=== PATIENT | female | born 2000 | race African-American/Black ===

== ENCOUNTER 2020-07-26 05:16 | Observation (INO) ==
--- NOTE | 2020-07-26 05:28 | ERNOTE ---
Abdominal HPI - General Chief Complaint: Abdominal Pain Time Seen by Provider: 07/26/20 05:16 Source: patient, EMS, past records - Immun/Allergies/Home Medications Immunizatons: IMMUNIZATION HX Immunizations Up to Date Yes History of Influenza Vaccine No Hx Pneumococcal Vaccination No Allergies/Adverse Reactions: Allergies ibuprofen Allergy (Verified 07/26/20 05:23) Swelling of Throat Home Medications: HOME MEDICATIONS NK 07/26/20 [Last Taken Unknown] - History of Present Illness Narrative: Patient brought in by EMS, states was outside in the grass, complaining of abdominal pain. She is writhing in pain, holding her abdomen. Patient initially stated she didn't know if she is , then she denied being . She offered no reason to have abdominal pain. Patient states that the pain started 3 days ago, but offers no other clues. EMS report that initially patient stated she didn't know if she was , then she denied to me, and finally told the nurse she had no idea when her last menstrual cycle was. Nursing staff pointed out that she could be then. Timing: constant, getting worse Quality: moderate, severe Activities at Onset: none Modifying Factors - (Improves): Present: other - nothing Modifying Factors - (Worsens): Present: movement Associated Symptoms: Present: loss of appetite Prior Abdominal Problems: Present: none Review of Systems - Review of Systems Constitutional: Absent: recent illness, fever, chills EYE: Absent: eye pain, eye discharge ENT: Absent: ear pain, ear discharge Respiratory: Absent: shortness of breath, cough Cardiology: Absent: chest pain Gastrointestinal/Abdominal: Present: nausea, abdominal pain. Absent: vomiting, diarrhea Genitourinary: Absent: frequency, pain, dysuria Musculoskeletal: Absent: back pain, muscle pain Medical History (Last Reviewed 07/26/20 @ 05:49 by Lula Lyle) Depression Surgical History: Surgical History (Last Reviewed 07/26/20 @ 05:49 by Lula Lyle) No pertinent past surgical history Family History: Family History (Last Reviewed 07/26/20 @ 05:49 by Lula Lyle) Other Cancer Hypertension Social History: (Last Reviewed 07/26/20 @ 05:49 by Lula Lyle) Social History: adopted: No foster care: No Marital status: Single lives independently: Yes number of children: 0 current occupational status: employed 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 Tobacco: Smoking Status: Current every day smoker Smoking cigarettes per day: 4 Alcohol: alcohol intake: never Substance Use: substance use type: does not use Dietary Habits: caffeine: No Physical Exam - Physical Exam General Appearance: Present: alert, moderate distress, other - rolling around on the bed, holding her abdomen Head Exam: Present: normal inspection, no evidence of injury Eye Exam: Normal inspection: bilateral, EOMI: bilateral Ears, Nose, Throat: Present: normal ENT inspection Neck: Present: normal inspection, nontender, supple, full range of motion Respiratory: Present: no respiratory distress, normal breath sounds, no accessory muscle use, chest nontender, lungs clear Cardiovascular/Chest: Present: regular rate, rhythm, no murmur Gastrointestinal/Abdominal: Present: normal bowel sounds, tenderness, distended - mildly Back Exam: Present: normal inspection, normal range of motion Extremity Exam: Present: normal inspection, non-tender, normal range of motion, no edema Neurological Exam: Present: alert, oriented, other - anxious Skin Exam: Present: normal color, warm/dry Progress - Results and Orders Patient's Lab Results:: I have reviewed the patient's lab results. Results and Orders: Laboratory Results - last 24 hr 07/26/20 07/26/20 07/26/20 05:45 05:45 05:45 WBC 19.3 H RBC 3.76 L Hgb 10.8 L Hct 33.3 L MCV 88.6 MCH 28.7 MCHC 32.4 RDW 13.9 Plt Count 283 MPV 9.7 Neutrophils % (Manual) 83 H Band Neuts % (Manual) 2 Lymphocytes % (Manual) 13 L Monocytes % (Manual) 2 Neutrophils # (Manual) 16.0 H Lymphocytes # (Manual) 2.5 Monocytes # (Manual) 0.4 Platelet Estimate Normal RBC Morphology Normal Sodium 139 Plasma Sodium 140 Potassium 3.2 L Chloride 102 Carbon Dioxide 24.7 Anion Gap 15.5 H BUN 7 Creatinine 0.76 Est GFR (Non-Af Amer) 124 BUN/Creatinine Ratio 9.2 Random Glucose 166 H Calcium 8.8 Calcium Adj for Albumin 8.8 Total Bilirubin 0.2 AST 17 ALT 15 L Alkaline Phosphatase 67 Total Protein 7.1 Albumin 3.6 Amylase 95 Lipase 239 Ethyl Alcohol Less than 3.0 Maternal Serum HCG 56190 H - Vital Signs Patient's Vital Signs:: I have reviewed the patient's vital signs. Vital Signs: Vital Signs 07/26/20 05:18 Temperature 35.9 C L Pulse Rate 77 Respiratory Rate 18 Blood Pressure 158/100 H O2 Sat by Pulse Oximetry 100 - CT/Ultrasound CT/Ultrasound Narrative: [facility] PATIENT RADIOLOGY STUDY REPORT Patient Patient Name:Breonna Gama Date: 2000 Sex: F Order Number: [id number] Unique Exam ID: [id number] Exam Requested: OB LIMIT1 - US OB Limited 1st Trimester Date Scheduled: 07-26-2020 07:01 AM Study Priority: Requesting Service: Requesting Physician: Lula Lyle Reason for Exam: abdominal pain Radiological Report : [facility] [address] [address] NAME: Breonna Gama : 2000 MR #: [id number] CC: Narcisa VALVERDE LOC: ER ADM DATE: DIS DATE: X-RAY REPORT [id number] ULT/US OB Limited 1st Trimester Exam Date: 07/26/2020 07:42 Ordering Physician: Lula Llye History: Beta hCG 15,000 Abdominal pain Technique: Transabdominal/transvaginal first trimester OB ultrasound performed. Results are called directly to the emergency room physician Dr. Lyle at 8:18 AM after discussion with the angio technologist Comparison: None Findings: Live ectopic identified in the right adnexa although cardiac heart rate cannot be obtained color flow indicates a beating heart with a pole and yolk sac in a thick-walled right adnexal mass. Extensive complex fluid in the pelvis suggests hemorrhaging Right ovarian volume not including ectopic approximately 5 cc. Right ovary 2.61 x 2.2 x 2.3 cm Left ovary 3.8 x 2.3 x 1.6 cm for volume of 7.4 cc Gestational sac dimension in the right adnexa ectopic 1.8 cc centimeters [place]-rump length 0.8 cm IMPRESSION: LIVE RIGHT ADNEXAL ECTOPIC EXTENSIVE BLOOD IN THE PELVIS INDICATING HEMORRHAGing RESULTS WERE CALLED DIRECTLY TO THE EMERGENCY ROOM PHYSICIAN DESCRIBED ABOVE Electronically signed by Logan Gamino MD. Logan Gamino MD Dict: 07/26/20821 Typed: 07/26/20821/ 07/26/20 0826 , Approved by: Logan Gamino Approval Date: 07-26-2020 Approval Time: 08:22 AM THIS REPORT WAS RECEIVED FROM THE [facility] - Progress/Reassessment Chief Complaint: Abdominal Pain Progress Note-Subjective: 07/26/20 09:13 Ultrasound shows an ectopic that needs to go to surgery 07/26/20 09:[address] Izquierdo, OB production weigher. She came over to see the patient, noting that she would need to go to the OR for surgery for this ectopic . Dr. Izquierdo accepted the patient for further evaluation and treatment. Departure Clinical Impression: Ectopic Qualifiers: Location of ectopic : other location Intrauterine status: without intrauterine Qualified Code(s): O00.80 - Other ectopic without intrauterine - Departure Disposition: Still a patient Condition: Stable Referrals: Narcisa Bush ARNP [Primary Care Provider] -
[2020-07-26 05:48] LABS: Hematocrit 33.3 % (37.0-47.0); Hemoglobin 10.8 gm/dL (12.5-16.0); Mean Cell Volume 88.6 fl (78-100); Mean Corpuscular Hemoglobin 28.7 pg (27-31); Mean Corpuscular Hgb Conc 32.4 g/dl (32-36); Mean Platelet Volume 9.7 fl (8-12.5); Platelet Count 283 K/mm3 (150-450); Red Blood Count 3.76 M/mm3 (4.2-5.4); Red Cell Distribution Width 13.9 % (11.5-14.0); White Blood Count 19.3 K/mm3 (4.0-10.5)
[2020-07-26 05:50] LABS: Total Cells Counted 100
[2020-07-26] MEDS ORDERED: ACETAMINOPHEN 1,000 MG/100 ML BTL IV ONE (05:53)
[2020-07-26] MEDS ORDERED: ONDANSETRON HCL/PF 2 MG/ML VIAL IV ONE (05:54)
[2020-07-26 06:02] LABS: ALT 15 U/L (19-67); AST 17 U/L (0-48); Albumin * 3.6 gm/dl (3.4-5.0); Alkaline Phosphatase * 67 U/L (50-170); Amylase * 95 U/L (25-115); Anion Gap 15.5 mmol/L (6.8-13.8); BUN/Creatinine Ratio 9.2 (9.0-21.6); Bilirubin, Total 0.2 mg/dL (0.0-1.1); Blood Urea Nitrogen 7 mg/dL (3-23); Ca. Corrected For Albumin 8.8 mg/dL (8.4-10.2); Calcium * 8.8 mg/dL (7.9-10.9); Carbon Dioxide 24.7 mmol/L (24-32.6); Chloride 102 mmol/L (97-106); Glucose * 166 mg/dL (70-110); Lipase 239 U/L (73-393); Potassium 3.2 mmol/L (3.4-4.6); Sodium 139 mmol/L (132-142); Total Protein 7.1 gm/dL (6.2-8.2)
[2020-07-26 06:12] LABS: Band 2 % (0-2.0); Lymphocyte 13 % (20-51); Monocyte 2 % (0-9); Neutrophil 83 % (42-75)
[2020-07-26 06:13] LABS: Platelet Estimate Normal (NORMAL); RBC Morphology Normal (NORMAL)
[2020-07-26] MEDS ORDERED: RINGER'S SOLUTION,LACTATED 1,000 ML IV ONE (09:10)
[2020-07-26] MEDS ORDERED: NEOSTIGMINE METHYLSULFATE 1 MG/ML VIAL ONE (09:16)
[2020-07-26] MEDS ORDERED: ONDANSETRON HCL/PF 2 MG/ML VIAL ONE (09:16)
[2020-07-26] MEDS ORDERED: fentaNYL CITRATE/PF 50 MCG/ML AMPUL ONE ×2 (09:16→10:22)
[2020-07-26] MEDS ORDERED: PROPOFOL VIAL IV ONE (09:16)
[2020-07-26] MEDS ORDERED: GLYCOPYRROLATE 0.2 MG/ML VIAL ONE (09:16)
[2020-07-26] MEDS ORDERED: KETOROLAC TROMETHAMINE 30 MG/ML VIAL ONE (09:16)
[2020-07-26] MEDS ORDERED: SUCCINYLCHOLINE CHLORIDE 20 MG/ML VIAL ONE (09:17)
[2020-07-26] MEDS ORDERED: ROCURONIUM BROMIDE 10 MG/ML VIAL ONE (09:17)
[2020-07-26] MEDS ORDERED: ceFAZolin SODIUM 1 GM VIAL ONE (09:21)
--- NOTE | 2020-07-26 09:21 | HP ---
Chief Complaint - Chief Complaint Date of Service: 07/26/20 Time of Service: 09:15 Chief Complaint: abdominal pain History of Present Illness: 19 year old at approximately 6 weeks gestation. She was found passed out and brought to the emergency department. She reports RLQ pain. 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 Tobacco: Smoking Status: Current every day smoker Smoking cigarettes per day: 4 Alcohol: alcohol intake: never Substance Use: substance use type: does not use Dietary Habits: caffeine: No Review Of Systems (GEN) - Review of Systems Generalized/Overall Review: Present: No Symptoms Reported Abdominal: Present: Other - RLQ pain Misc: All systems neg except as marked Immunizations: IMMUNIZATION HX Immunizations Up to Date Yes History of Influenza Vaccine No Hx Pneumococcal Vaccination No Allergies/Adverse Reactions: Allergies Allergy/AdvReac Type Severity Reaction Status Date / Time ibuprofen Allergy Swelling Verified 07/26/20 05:23 of Throat Home Medications: HOME MEDICATIONS NK 07/26/20 [Last Taken Unknown] Exam - Exam Vital Signs: Vital Signs - Last Taken Temp 35.9 C L 07/26/20 05:18 Pulse 65 07/26/20 09:00 Resp 14 07/26/20 09:00 BP 134/81 07/26/20 09:00 Pulse Ox 100 07/26/20 09:00 Constitutional: Present: Alert, Oriented x3, Cooperative, No distress ENT Exam: Present: hearing grossly normal Eye Exam: bilateral eye: normal inspection Neck: Present: normal inspection Respiratory: Present: lungs clear, normal breath sounds, no respiratory distress Cardiovascular/Chest: Present: regular rate, rhythm Abdomen: Present: Normal bowel sounds, soft, tender, rebound tenderness /Rectal: Present: Exam deferred Extremity: Present: non-tender, no calf tenderness Skin Exam: Present: normal color, warm/dry, no cyanosis Neurologic: Present: alert, normal mood/affect, oriented x 3 Appearance: Present: appropriate appearance, appropriate insight, neat, no memory impairment Eye contact: Present: cooperative, good eye contact, normal speech Thoughts: Present: normal thought pattern Diagnostic Studies: Abnormal Lab Results 07/26/20 07/26/20 07/26/20 Range/Units 05:45 05:45 05:45 WBC 19.3 H (4.0-10.5) K/mm3 RBC 3.76 L (4.2-5.4) M/mm3 Hgb 10.8 L (12.5-16.0) gm/dL Hct 33.3 L (37.0-47.0) % Neutrophils % (Manual) 83 H (42-75) % Lymphocytes % (Manual) 13 L (20-51) % Neutrophils # (Manual) 16.0 H (1.3-6.0) K/mm3 Potassium 3.2 L (3.4-4.6) mmol/L Anion Gap 15.5 H (6.8-13.8) mmol/L Random Glucose 166 H (70-110) mg/dL ALT 15 L (19-67) U/L Maternal Serum HCG 49034 H (0-6) mIU/mL Laboratory Results WBC 19.3 K/mm3 (4.0-10.5) H 07/26/20 05:45 RBC 3.76 M/mm3 (4.2-5.4) L 07/26/20 05:45 Hgb 10.8 gm/dL (12.5-16.0) L 07/26/20 05:45 Hct 33.3 % (37.0-47.0) L 07/26/20 05:45 MCV 88.6 fl (78-100) 07/26/20 05:45 MCH 28.7 pg (27-31) 07/26/20 05:45 MCHC 32.4 g/dl (32-36) 07/26/20 05:45 RDW 13.9 % (11.5-14.0) 07/26/20 05:45 Plt Count 283 K/mm3 (150-450) 07/26/20 05:45 MPV 9.7 fl (8-12.5) 07/26/20 05:45 Neutrophils % (Manual) 83 % (42-75) H 07/26/20 05:45 Band Neuts % (Manual) 2 % (0-2.0) 07/26/20 05:45 Lymphocytes % (Manual) 13 % (20-51) L 07/26/20 05:45 Monocytes % (Manual) 2 % (0-9) 07/26/20 05:45 Neutrophils # (Manual) 16.0 K/mm3 (1.3-6.0) H 07/26/20 05:45 Lymphocytes # (Manual) 2.5 k/mm3 (1.5-3.5) 07/26/20 05:45 Monocytes # (Manual) 0.4 k/mm3 (0.0-1.0) 07/26/20 05:45 Platelet Estimate Normal (NORMAL) 07/26/20 05:45 RBC Morphology Normal (NORMAL) 07/26/20 05:45 Sodium 139 mmol/L (132-142) 07/26/20 05:45 Plasma Sodium 140 mmol/L (130-142) 07/26/20 05:45 Potassium 3.2 mmol/L (3.4-4.6) L 07/26/20 05:45 Chloride 102 mmol/L (97-106) 07/26/20 05:45 Carbon Dioxide 24.7 mmol/L (24-32.6) 07/26/20 05:45 Anion Gap 15.5 mmol/L (6.8-13.8) H 07/26/20 05:45 BUN 7 mg/dL (3-23) 07/26/20 05:45 Creatinine 0.76 mg/dL (0.4-1.4) 07/26/20 05:45 Est GFR (Non-Af Amer) 124 mL/min (60-130) 07/26/20 05:45 BUN/Creatinine Ratio 9.2 (9.0-21.6) 07/26/20 05:45 Random Glucose 166 mg/dL (70-110) H 07/26/20 05:45 Calcium 8.8 mg/dL (7.9-10.9) 07/26/20 05:45 Calcium Adj for Albumin 8.8 mg/dL (8.4-10.2) 07/26/20 05:45 Total Bilirubin 0.2 mg/dL (0.0-1.1) 07/26/20 05:45 AST 17 U/L (0-48) 07/26/20 05:45 ALT 15 U/L (19-67) L 07/26/20 05:45 Alkaline Phosphatase 67 U/L (50-170) 07/26/20 05:45 Total Protein 7.1 gm/dL (6.2-8.2) 07/26/20 05:45 Albumin 3.6 gm/dl (3.4-5.0) 07/26/20 05:45 Amylase 95 U/L (25-115) 07/26/20 05:45 Lipase 239 U/L (73-393) 07/26/20 05:45 Ethyl Alcohol Less than 3.0 mg/dL (0.0-10.0) 07/26/20 05:45 Maternal Serum HCG 83051 mIU/mL (0-6) H 07/26/20 05:45 Assessment/Plan - Narrative Narrative: 19 year old with presumed ruptured right ectopic . Proceed with laparoscopy, right salpingectomy. All risks, benefits, and alternatives of the procedure were explained to the patient and the patient consented to the procedure. Type and screen should the patient need blood and also to determine the need for Rhogam. Patient currently hemodynamically stable. Awaiting for COVID test results to proceed with surgical intervention. - Assessment/Plan (1) Ruptured right tubal ectopic causing hemoperitoneum Problem: Acute (2) Acute blood loss anemia Problem: Acute (3) Leukocytosis Problem: Acute
--- NOTE | 2020-07-26 10:14 | ANES ---
Anesthesia Pre Procedure Eval Vitals/Labs: Last Vital Signs Temp 35.9 C L 07/26/20 05:18 Pulse 65 07/26/20 09:00 Resp 14 07/26/20 09:00 BP 134/81 07/26/20 09:00 Pulse Ox 100 07/26/20 09:00 HOME MEDICATIONS hydrocodone 5 mg-acetaminophen 325 mg tablet 1 tab PO Q6H PRN #12 tab 07/26/20 [Last Taken Unknown] Allergies/Adverse Reactions: Allergies Allergy/AdvReac Type Severity Reaction Status Date / Time ibuprofen Allergy Swelling Verified 07/26/20 05:23 of Throat - Planned Procedure Planned Procedure: abd pain Medication List Reviewed:: Yes Allergies Verified: Yes Medical History (Last Reviewed 07/26/20 @ 10:11 by Robin Cagle CRNA) Depression Surgical History (Last Reviewed 07/26/20 @ 10:11 by Robin Cagle CRNA) No pertinent past surgical history Family History (Last Reviewed 07/26/20 @ 10:11 by Robin Cagle CRNA) Other Cancer Hypertension - Family Anesthesia History Family History:: no untoward family reactions to anesthesia, no familial bleeding tendencies, no family history of clotting disorders, no family history of premature - Airway/Neck/Teeth Within Normal Limits:: Yes Teeth Condition: intact Neck Exam: full range of motion Mallampatti Score: 2 Thyromental (T-M) distance: > 6 cm Mandibulo Hyoid distance: > 3 cm - Respiratory Respiratory Physical: lungs clear Smoking Status: Current some day smoker Discussed smoking cessation including day of surgery: Yes - last one, yesterday Sleep Apnea currently treated: No Sleep Apnea by current assessment: No - Cardiovascular Tolerate Activity: Good Heart Sounds: S1 & S2, Regular - Gastrointestinal NPO since: 2399 - Anesthesia Assessment and Plan ASA Class: PS, II, E Anesthesia Type Plan: General ET
[2020-07-26] MEDS ORDERED: ceFAZolin SODIUM 1 GM in DEXTROSE 5 % IN WATER 100 ML IV ONE ×2 (10:40)
[2020-07-26] MEDS: RINGER'S SOLUTION,LACTATED 1,000 ML IV PRN ×2 (11:00→13:39)
[2020-07-26 11:12] LABS: Urine Bilirubin Negative (NEGATIVE); Urine Blood Negative /ul (NEGATIVE); Urine Ketone 50 mg/dL (NEGATIVE); Urine Nitrite Negative (NEGATIVE); Urine Protein Negative (NEGATIVE); Urine Specific Gravity 1.025 SP.GR. (1.005-1.010); Urine Urobilinogen Normal (NORMAL)
[2020-07-26 11:13] LABS: Urine Appearance Clear (CLEAR); Urine Bacteria TRACE; Urine Color Yellow; Urine Mucus Moderate - 2+; Urine RBC 0-5 /hpf (0-5); Urine WBC 0-5 /hpf (0-5)
[2020-07-26 11:17] LABS: Cocaine Ur Negative (NEGATIVE); Urine Barbiturate Negative (NEGATIVE); Urine Benzodiazepines Negative (NEGATIVE); Urine Opiates Negative (NEGATIVE); Urine PCP Negative (NEGATIVE)
[2020-07-26 11:19] LABS: Urine THC Positive (NEGATIVE)
[2020-07-26] MEDS ORDERED: LIDOCAINE HCL/EPINEPHRINE 50 ML VIAL IJ ONE (11:23)
--- NOTE | 2020-07-26 12:28 | ANES ---
Post Anesthesia Discharge - Transfer of Care Transfer of Care handoff given to nurse: Yes - Discharge from PACU Discharge from PACU when meets criteria: Yes - Alert and comfortable.
[2020-07-26] MEDS ORDERED: MORPHINE SULFATE 2 MG/ML DISP.SYRIN IV PRN (12:35)
--- NOTE | 2020-07-26 12:39 | POSTOP NO ---
Date of Surgery: 07/26/20 Anesthesia: General Patient Tolerated the Procedure: Well Post Operative Diagnosis/Procedures: Pre Operative Diagnosis: ruptured right ectopic Post Operative Diagnosis: same Procedure Performed: Laparoscopy, right salpingectomy, evacuation of hemoperitoneum Estimated Blood Loss: minimal, about 500 mL of hemoperitoneum Specimens: right ectopic Surgical Complications: Condition: stable Disposition: 23 hour obs
--- NOTE | 2020-07-26 13:25 | ANES ---
Post Anesthesia Assessment - Vital Signs Vitals: Last Vital Signs Temp 36.5 C 07/26/20 13:00 Pulse 88 07/26/20 13:15 Resp 12 07/26/20 13:15 BP 144/125 H 07/26/20 13:15 Pulse Ox 100 07/26/20 13:15 Airway Patency: Normal - Mental Status Level Of Consciousness: Awake, Alert, Appropriate - Pain Level Pain Score: 8 - N/V Assessment Nausea/Vomiting Presence: None Dehydration:: No
[2020-07-26] MEDS: HYDROcodone/ACETAMINOPHEN 1 EACH TABLET PO PRN ×3 (14:33→21:10)
[2020-07-26] MEDS ORDERED: ONDANSETRON HCL/PF 2 MG/ML VIAL IV PRN (16:10)
[2020-07-26] MEDS ORDERED: MELATONIN 3,000 MCG TABLET PO PRN (16:56)
[2020-07-26 17:16] LABS: Hematocrit 27.8 % (37.0-47.0); Hemoglobin 9.1 gm/dL (12.5-16.0); Mean Cell Volume 88.5 fl (78-100); Mean Corpuscular Hgb Conc 32.7 g/dl (32-36); Neutrophil # 14.7 K/mm3 (1.3-6.0); Neutrophil % 75.6 % (42-75.0); Platelet Count 235 K/mm3 (150-450); Red Blood Count 3.14 M/mm3 (4.2-5.4); Red Cell Distribution Width 14.2 % (11.5-14.0); White Blood Count 19.3 K/mm3 (4.0-10.5)
--- NOTE | 2020-07-26 17:52 | OR ---
Operative Report - Dictated Report Narrative: Preoperative diagnosis: ruptured right ectopic Postoperative diagnosis: same Procedure: Laparoscopic right salpingectomy, evacuation of hemoperitoneum Surgeon: Dr. Izquierdo Anesthesia: TIMO Anesthesiologist: Robin Cagle CRNA Description of the procedure: The patient was taken to the operating room where general anesthesia was induced. She was then prepped and draped in the lithotomy position in the standard surgical fashion. Attention was then turned to the vagina. A sterile speculum was placed in the patient's vagina. The anterior lip of the cervix was grasped with a single toothed tenaculum. The cervical os was gently dilated with Abhilash dilators to #14 to accommodate the uterine manipulator. The uterus sounded to 8 cm. A ZUMI manipulator was placed. Attention was then turned to the abdomen. A 5 mm skin incision was made at the punctum of the umbilicus. The abdomen was entered directly and then insufflated with CO2 gas. A second 5 mm port was placed in the LLQ. A 12 mm port was placed in the RLQ. A right ruptured ectopic was identified. The sac containing the fetus was extruded from the tube. The right fallopian tube was cut along the mesosalpinx. The right fallopian tube and were removed from the abdomen using an endobag. The omentum was adherent to the pelvic side wall bilaterally. The omentum was from the pelvic side wall to allow for optimal evacuation of the hemoperitoneum. Care was taken to observe the bowel wall at all times. Next, a large amount of clotted blood was removed from the abdomen. The abdomen was copiously irrigated and suctioned. The RLQ port's fascia was closed with 0-vicryl using a Tad-Brigid device. The skin incisions were closed with 4-0 rapide. [place] blancas was placed over the incisions. The incisions were covered with band aids. All sponge, lap, and needle counts were correct. The patient tolerated the procedure well. She was transferred to the recovery room in stable condition. EBL: minimal, 500 mL of hemoperitoneum Complications: none Specimen: right fallopian tube with ectopic
[2020-07-26] MEDS ORDERED: CITALOPRAM HYDROBROMIDE 10 MG TABLET PO SCH (21:00)
[2020-07-27] MEDS: HYDROcodone/ACETAMINOPHEN 1 EACH TABLET PO PRN ×4 (03:45→16:06)
[2020-07-27 07:04] LABS: Hematocrit 24.3 % (37.0-47.0); Mean Cell Volume 87.7 fl (78-100); Mean Corpuscular Hemoglobin 28.9 pg (27-31); Mean Corpuscular Hgb Conc 32.9 g/dl (32-36); Mean Platelet Volume 9.6 fl (8-12.5); Neutrophil # 7.3 K/mm3 (1.3-6.0); Neutrophil % 64.4 % (42-75.0); Platelet Count 193 K/mm3 (150-450); Red Blood Count 2.77 M/mm3 (4.2-5.4); Red Cell Distribution Width 14.1 % (11.5-14.0); White Blood Count 11.3 K/mm3 (4.0-10.5)
--- NOTE | 2020-07-27 10:55 | PN ---
Subjective - Date and Time Seen Date: 07/27/20 Time: 10:45 Subjective Narrative: Patient without complaints other than dizziness Objective Objective Narrative: See vital signs - Review of Systems Misc: All systems neg except as marked - Vitals Vitals: Last Vital Signs Temp 37.1 C 07/27/20 10:29 Pulse 71 07/27/20 10:29 Resp 18 07/27/20 10:29 BP 122/78 07/27/20 10:29 Pulse Ox 100 07/27/20 10:29 - Abnormal Lab Findings Abnormal Lab Findings: Abnormal Lab Results 07/26/20 07/26/20 07/26/20 Range/Units 10:50 10:50 17:11 WBC 19.3 H (4.0-10.5) K/mm3 RBC 3.14 L (4.2-5.4) M/mm3 Hgb 9.1 L (12.5-16.0) gm/dL Hct 27.8 L (37.0-47.0) % RDW 14.2 H (11.5-14.0) % Immature Gran # (Auto) 0.06 H (0.000-0.0310) K/mm3 Neutrophils % 75.6 H (42-75.0) % Lymphocytes % 19.0 L (20-51) % Neutrophils # 14.7 H (1.3-6.0) K/mm3 Lymphocytes # 3.67 H (1.5-3.5) k/mm3 Ur Epithelial Cells 10-25 H (0-5) /hpf Urine Mucus Moderate - 2+ H (NONE) Urine Marijuana (THC) Positive H (NEGATIVE) 07/27/20 Range/Units 07:00 WBC 11.3 H D (4.0-10.5) K/mm3 RBC 2.77 L (4.2-5.4) M/mm3 Hgb 8.0 L (12.5-16.0) gm/dL Hct 24.3 L (37.0-47.0) % RDW 14.1 H (11.5-14.0) % Immature Gran # (Auto) (0.000-0.0310) K/mm3 Neutrophils % (42-75.0) % Lymphocytes % (20-51) % Neutrophils # 7.3 H (1.3-6.0) K/mm3 Lymphocytes # (1.5-3.5) k/mm3 Ur Epithelial Cells (0-5) /hpf Urine Mucus (NONE) Urine Marijuana (THC) (NEGATIVE) - Exam Constitutional: Present: Alert, Oriented x3, Cooperative, No distress ENT Exam: Present: hearing grossly normal Abdomen: Present: soft, nontender, nondistended - Incisions c/d/i Extremity: Present: non-tender, no calf tenderness Skin Exam: Present: normal color, warm/dry, no cyanosis Appearance: Present: appropriate appearance, appropriate insight, neat, no memory impairment Eye contact: Present: cooperative, good eye contact, normal speech Thoughts: Present: normal thought pattern Assessment/Plan Plan Narrative: POD 1 s/p laparoscopic right salpingectomy Doing well Acute blood loss anemia: CBC at 1100 to ensure the patient does not need a blood transfusion. The drop in the patient's hemoglobin is unlikely to be from ongoing bleeding given her vital signs. It is likely from equilibration of the blood loss. However, I will check a CBC at 1100 to ensure that is the case. Given that the patient is feeling lightheaded will proceed with a venofer iron infusion. Will pre-medicate for infusion. Will give venofer 500 mg IV q2wk x2 doses. Will order the second dose for the patient to receive at the [facility] in 2 weeks. Narcotic Rx sent for patient Discussed contraception with the patient again Also discussed the need for pap smear given the patient's age The patient will need to be off work for two weeks Follow-up in the office in 4 weeks or sooner for any other concerns - Problems/Diagnosis (1) Ruptured right tubal ectopic causing hemoperitoneum Problem: Acute (2) Acute blood loss anemia Problem: Acute (3) Leukocytosis Problem: Acute
[2020-07-27 11:12] LABS: Hematocrit 26.9 % (37.0-47.0); Hemoglobin 8.8 gm/dL (12.5-16.0); Mean Cell Volume 87.1 fl (78-100); Mean Corpuscular Hemoglobin 28.5 pg (27-31); Mean Corpuscular Hgb Conc 32.7 g/dl (32-36); Mean Platelet Volume 9.3 fl (8-12.5); Neutrophil # 7.4 K/mm3 (1.3-6.0); Neutrophil % 63.3 % (42-75.0); Platelet Count 221 K/mm3 (150-450); Red Blood Count 3.09 M/mm3 (4.2-5.4); Red Cell Distribution Width 14.4 % (11.5-14.0); White Blood Count 11.6 K/mm3 (4.0-10.5)
[2020-07-27] MEDS ORDERED: ACETAMINOPHEN 500 MG TABLET PO ONE (11:19)
[2020-07-27] MEDS ORDERED: diphenhydrAMINE HCL 25 MG CAPSULE PO ONE (11:20)
[2020-07-27] MEDS ORDERED: IRON SUCROSE COMPLEX 500 MG in NORMAL SALINE 250 ML IV ONE ×5 (11:30→11:45)
--- NOTE | 2020-07-27 11:30 | DS ---
(1) Ruptured right tubal ectopic causing hemoperitoneum Problem: Acute (2) Acute blood loss anemia Problem: Acute (3) Leukocytosis Problem: Acute Date of Discharge:: 07/27/20 Hospital Course: The patient is a 19 year old who underwent laparoscopic right salpingectomy and evacuation of hemoperitoneum for a ruptured ectopic . She was admitted for pain control overnight. Hemoglobin is stable on discharge. Since the patient is lightheaded will proceed with iron infusion today and a repeat iron infusion in 7 days. She is stable and her pain is controlled. She is tolerating a regular diet and ambulating. Procedures Performed: see notes below List Procedures: Laparoscopic right salpingectomy Evacuation of hemoperitoneum Results and Findings: Pending Mircobiology Results 07/26/20 10:50 Urine,Catheterized Urine Culture - Preliminary No Growth Lab Pending Results 07/26/20 05:45: WBC 19.3 H, RBC 3.76 L, Hgb 10.8 L, Hct 33.3 L, MCV 88.6, MCH 28.7, MCHC 32.4, RDW 13.9, Plt Count 283, MPV 9.7, Neutrophils % (Manual) 83 H, Band Neuts % (Manual) 2, Lymphocytes % (Manual) 13 L, Monocytes % (Manual) 2, Neutrophils # (Manual) 16.0 H, Lymphocytes # (Manual) 2.5, Monocytes # (Manual) 0.4, Platelet Estimate Normal, RBC Morphology Normal 07/26/20 05:45: Sodium 139, Plasma Sodium 140, Potassium 3.2 L, Chloride 102, Carbon Dioxide 24.7, Anion Gap 15.5 H, BUN 7, Creatinine 0.76, Est GFR (Non-Af Amer) 124, BUN/Creatinine Ratio 9.2, Random Glucose 166 H, Calcium 8.8, Calcium Adj for Albumin 8.8, Total Bilirubin 0.2, AST 17, ALT 15 L, Alkaline Phosphatase 67, Total Protein 7.1, Albumin 3.6, Amylase 95, Lipase 239, Ethyl Alcohol Less than 3.0 07/26/20 05:45: Maternal Serum HCG 17128 H 07/26/20 08:49: SARS-CoV-2 (PCR) Not detected 07/26/20 09:35: Blood Type B Positive, Antibody Screen Negative 07/26/20 10:50: Urine Opiates Screen Negative, Barbiturate Screen Negative, Ur Phencyclidine Scrn Negative, Urine Amphetamine Negative, U Benzodiazepines Scrn Negative, Urine Cocaine Screen Negative, Urine Marijuana (THC) Positive H 07/26/20 10:50: Urine Color Yellow, Urine Appearance Clear, Urine pH 5.0, Ur Specific [place] 1.025, Urine Protein Negative, Urine Glucose (UA) Negative, Urine Ketones 50, Urine Blood Negative, Urine Nitrate Negative, Urine Bilirubin Negative, Urine Urobilinogen Normal, Ur Leukocyte Esterase Negative, Urine RBC 0-5, Urine WBC 0-5, Ur Epithelial Cells 10-25 H, Urine Bacteria Trace, Urine Mucus Moderate - 2+ H, Urine Culture Comments Culture to follow 07/26/20 11:27: Pathology Specimen Spec to path 07/26/20 17:11: WBC 19.3 H, RBC 3.14 L, Hgb 9.1 L, Hct 27.8 L, MCV 88.5, MCH 29.0, MCHC 32.7, RDW 14.2 H, Plt Count 235, MPV 10.0, Immature Gran % (Auto) 0.30, Immature Gran # (Auto) 0.06 H, Neutrophils % 75.6 H, Lymphocytes % 19.0 L, Monocytes % 4.7, Eosinophils % 0.1, Basophils % 0.3, Nucleated RBC % 0.0, Neutrophils # 14.7 H, Lymphocytes # 3.67 H, Monocytes # 0.9, Eosinophils # 0.0, Absolute Basophils 0.1 07/27/20 07:00: WBC 11.3 H D, RBC 2.77 L, Hgb 8.0 L, Hct 24.3 L, MCV 87.7, MCH 28.9, MCHC 32.9, RDW 14.1 H, Plt Count 193, MPV 9.6, Immature Gran % (Auto) 0.30, Immature Gran # (Auto) 0.03, Neutrophils % 64.4, Lymphocytes % 28.9, Monocytes % 5.7, Eosinophils % 0.4, Basophils % 0.3, Nucleated RBC % 0.0, Neutrophils # 7.3 H, Lymphocytes # 3.27, Monocytes # 0.6, Eosinophils # 0.0, Absolute Basophils 0.0 07/27/20 11:00: WBC 11.6 H, RBC 3.09 L, Hgb 8.8 L, Hct 26.9 L, MCV 87.1, MCH 28.5, MCHC 32.7, RDW 14.4 H, Plt Count 221, MPV 9.3, Immature Gran % (Auto) 0.40, Immature Gran # (Auto) 0.05 H, Neutrophils % 63.3, Lymphocytes % 30.8, Monocytes % 4.9, Eosinophils % 0.3, Basophils % 0.3, Nucleated RBC % 0.0, Neutrophils # 7.4 H, Lymphocytes # 3.58 H, Monocytes # 0.6, Eosinophils # 0.0, Absolute Basophils 0.0 Discharge Location: Home Disposition: Home self-care Condition: Good Discharge Activity: Activity as tolerated, Other - No baths for 1 month, no intercourse for 4 weeks Discharge Diet: General/regular food Referrals: Narcisa Bush ARNP [Primary Care Provider] - Additional Patient Instructions (free text): Please arrive for Iron infusion in the [facility] on 08/12/20 @ 0800. Complete Home Medications List: Complete Home Medication List: Citalopram Hydrobromide [Celexa] 30 mg PO HS 07/26/20 Melatonin 10 mg PO HS PRN 07/26/20 hydrocodone 5 mg-acetaminophen 325 mg tablet 1 tab PO Q6H PRN #12 tab 07/26/20 Forms: Patient Portal Registration
[2020-07-27 17:48] VITALS: BP 134/94
== END 2020-07-27 17:30 | disposition home or self-care (01) ==
LOC: ER 05:16 → SUR 09:36 → MS 09:36 → SUR 10:25 → MS 14:06
PROVIDERS: ADMIT Obstetrics & Gynecology; ATTEND Obstetrics & Gynecology